=== PATIENT | female | born 1990 | race African-American/Black ===

== ENCOUNTER 2016-07-24 15:57 | Emergency (ER) | payer SELFPAY ==
[~2016-07-24] VITALS: Ht 157.5 cm; Wt 50.0 kg
[~2016-07-24 15:57] MED LIST: CIPR500T4 PO; MACR100C PO; PYRI200T4 PO
[2016-07-24 16:00] VITALS: BP 112/58; PULSE 72; RESP 18; TEMP 98; O2SAT 99
--- NOTE | 2016-07-24 16:26 | PD ---
HPI Chief Complaint: Skin Problem Time Seen by Provider: 16:22 Travel History International Travel<30 days: No Contact w/Intl Traveler<30days: No Traveled to known affect area: No History of Present Illness HPI Patient is a 25-year-old female presented to the emergency department for evaluation of a rash to her bilateral arms. Patient states it started 1 week ago, she states is itchy. She denies any fever, chills, wheezing, shortness of breath, history of anaphylactic reactions. She denies any history of eczema or asthma. Patient further denies any new soaps, lotions, detergents, foods. PFSH Past Medical History Medical History: Denies Significant Hx ?: Not Social History Alcohol Use: No Tobacco Use: No Substance Use: No Allergies-Medications (Allergen,Severity, Reaction): Coded Allergies: No Known Allergies (Verified , 07/24/16) Reported Meds & Prescriptions Reported Meds & Active Scripts Active Cipro (Ciprofloxacin HCl) 500 Mg Tab 500 Mg PO BID Macrobid (Nitrofurantoin Macrocrystals) 100 Mg Cap 100 Mg PO BID Pyridium (Phenazopyridine HCl) 200 Mg Tab 200 Mg PO Q8 PRN Review of Systems Except as stated in HPI: all other systems reviewed are Neg Skin: Positive Rash, Positive Itching Physical Exam Narrative GENERAL: Well-nourished, well-developed patient. SKIN: Focused skin assessment warm/dry. 0.5 cm (approximately) raised papular lesions to bilateral arms, scaling skin. No erythema, no induration, no fluctuance noted. HEAD: Normocephalic. EYES: No scleral icterus. No injection or drainage. NECK: Supple, trachea midline. No JVD or lymphadenopathy. CARDIOVASCULAR: Regular rate and rhythm without murmurs, gallops, or rubs. RESPIRATORY: Breath sounds equal bilaterally. No accessory muscle use. GASTROINTESTINAL: Abdomen soft, non-tender, nondistended. MUSCULOSKELETAL: No cyanosis, or edema. BACK: Nontender without obvious deformity. No CVA tenderness. Data Data Last Documented VS Vital Signs Date Time Temp Pulse Resp B/P Pulse Ox O2 Delivery O2 Flow Rate FiO2 07/24/16 16:00 98.0 72 18 112/58 99 Orders Methylprednisolone So Succ Inj (Solumedr (07/24/16 16:30) Diphenhydramine Inj (Benadryl Inj) (07/24/16 16:30) MDM Medical Decision Making Medical Screen Exam Complete: Yes Emergency Medical Condition: Yes Interpretation(s) Vital Signs Date Time Temp Pulse Resp B/P Pulse Ox O2 Delivery O2 Flow Rate FiO2 07/24/16 16:00 98.0 72 18 112/58 99 Differential Diagnosis Eczema versus contact dermatitis versus folliculitis versus impetigo versus other Narrative Course Patient's 25-year-old female presenting to emergency department evaluation rest to her bilateral arms. Rash is scaling and raised, circular. Appears to look like eczema however patient has no history of the same. Patient will be given Solu-Medrol and Benadryl in the emergency department, will reassess for response. Patient reports that the itching has improved, rash appears improved as well. Patient will be given prescription for triamcinolone cream, oral steroids, hydroxyzine. She is encouraged to follow-up with a primary doctor or the supervisor ore dressing. Patient verbalized understanding of these instructions. She was also encouraged to return to emergency department for any new or worsening symptoms. Patient is stable for discharge. Diagnosis Primary Impression: Rash and nonspecific skin eruption Additional Impression: Urticaria Referrals: Manager Payment Patient Instructions: Acute Rash (ED), Eczema (ED), General Instructions Additional Instructions: Follow-up with a supervisor ore dressing or your primary doctor Return to emergency department for any new or worsening symptoms Take medications as directed Med/Other Pt SpecificInfo: Prescription(s) given Scripts Methylprednisolone Dosepak (Medrol Dosepak)4 Mg Dspk4 Mg PO DIRECTED #1 DSPK Ref 0 Per Pharmacist direction Prov:Kelin Drew 07/24/16 Hydroxyzine HCl 50 Mg Tab50 Mg PO TID PRN (ITCHING) 7 Days Ref 0 Prov:Kelin Drew 07/24/16 Triamcinolone Topical 0.1% Cream1 Applic TOPICAL BID #60 GM Ref 0 Prov:Kelin Drew 07/24/16 Disposition: 01 DISCHARGE HOME Condition: Stable Kelin Drew Jul 24, 2016 16:26
[2016-07-24] MEDS ORDERED: methylPREDNISolone SOD SUCC 125 MG/2 ML VIAL IM ONE (16:30)
[2016-07-24] MEDS ORDERED: diphenhydrAMINE HCL 50 MG/ML VIAL IM ONE (16:30)
[2016-07-24] MEDS ORDERED: MEDR4PAK PO (17:04)
[2016-07-24] MEDS ORDERED: HYDR50TA94 PO (17:04)
[2016-07-24] MEDS ORDERED: TRIA.1%T TOPICAL (17:04)
== END 2016-07-24 17:11 | disposition home or self-care (01) ==
LOC: NETRI 15:57
DX: R21 Rash and other nonspecific skin eruption (principal); L50.9 Urticaria, unspecified
CPT/HCPCS: 96372; 99282; J1200; J2930

== ENCOUNTER 2017-09-01 00:34 | Emergency (ER) | payer SELFPAY ==
[~2017-09-01] VITALS: Ht 157.5 cm; Wt 48.0 kg
[~2017-09-01 00:34] MED LIST changes: +HYDR50TA94 PO; +MEDR4PAK PO; +TRIA.1%T TOPICAL
[2017-09-01 00:58] VITALS: BP 136/59; PULSE 79; RESP 16; TEMP 97.7; O2SAT 98
--- NOTE | 2017-09-01 03:45 | PD ---
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 No fever no chills no nausea no vomiting no abdominal pain no flank pain no dysuria no frequency no urgency. Patient denies as she just finished her normal period yesterday. Patient states she is wearing a sanitary pad and has had to change it twice today but not because she bleeding but because she wants to make sure it stays clean. Patient has other concerns or complaints. Pain is 0/10 intensity. PFSH Past Medical History Narrative Medical Negative past medical history negative surgical history no tobacco use alcohol use and substance use; nursing notes reviewed Medical History: Denies Significant Hx ?: Not LMP: 08/22/17 Past Surgical History Surgical History: No Previous Surgery Social History Alcohol Use: No Tobacco Use: No Substance Use: No Allergies-Medications (Allergen,Severity, Reaction): Coded Allergies: No Known Allergies (Verified , 07/24/16) Reported Meds & Prescriptions Reported Meds & Active Scripts Active Medrol Dosepak (Methylprednisolone) 4 Mg Dspk 4 Mg PO DIRECTED Per Pharmacist direction Hydroxyzine HCl 50 Mg Tab 50 Mg PO TID PRN 7 Days Triamcinolone Topical (Triamcinolone Acetonide) 0.1% Cream 1 Applic TOPICAL BID Cipro (Ciprofloxacin HCl) 500 Mg Tab 500 Mg PO BID Macrobid (Nitrofurantoin Macrocrystals) 100 Mg Cap 100 Mg PO BID Pyridium (Phenazopyridine HCl) 200 Mg Tab 200 Mg PO Q8 PRN Review of Systems Except as stated in HPI: all other systems reviewed are Neg Physical Exam Narrative GENERAL: Well-developed well-nourished female no acute distress no respiratory distress; triage vital signs grossly within normal range SKIN: Warm and dry. HEAD: Normocephalic. EYES: No scleral icterus. No injection or drainage. NECK: Supple, trachea midline. No JVD or lymphadenopathy. CARDIOVASCULAR: Regular rate and rhythm without murmurs, gallops, or rubs. RESPIRATORY: Breath sounds equal bilaterally. No accessory muscle use. GASTROINTESTINAL: Abdomen soft, non-tender, nondistended. MUSCULOSKELETAL: No cyanosis, or edema. BACK: Nontender without obvious deformity. No CVA tenderness. Data Data Last Documented VS Vital Signs Date Time Temp Pulse Resp B/P (MAP) Pulse Ox O2 Delivery O2 Flow Rate FiO2 09/01/17 00:58 97.7 79 16 136/59 (84) 98 Orders Orders Urinalysis - C+S If Indicated (09/01/17 03:42) Ed Urine Pregnancytest Poc (09/01/17 03:42) Urine Culture (09/01/17 03:47) Labs Laboratory Tests Test 09/01/17 03:47 Urine Color YELLOW Urine Turbidity HAZY Urine pH 6.0 Urine Specific Black 1.016 Urine Protein TRACE mg/dL Urine Glucose (UA) NEG mg/dL Urine Ketones NEG mg/dL Urine Occult Blood MOD Urine Nitrite NEG Urine Bilirubin NEG Urine Urobilinogen LESS THAN 2.0 MG/DL Urine Leukocyte Esterase MOD Urine RBC 3 /hpf Urine WBC 20 /hpf Urine Squamous Epithelial Cells 5 /hpf Urine Bacteria OCC /hpf Urine Mucus MOD /lpf Microscopic Urinalysis Comment CULTURE INDICATED MDM Medical Decision Making Medical Screen Exam Complete: Yes Emergency Medical Condition: Yes Medical Record Reviewed: Yes Interpretation(s) [id number] hCG: Negative Urinalysis positive leukocyte esterase white blood cells bacteria culture indicated and positive for blood Differential Diagnosis Hematuria, vaginal bleeding, Narrative Course Specimens collected and sent for resulting including [id number] Patient informed of urinalysis results given first dose of oral antibiotic and is stable for outpatient management Diagnosis Primary Impression: UTI (urinary tract infection) Referrals: Primary Care Physician call for appointment Patient Instructions: General Instructions Additional Instructions: Complete course of antibiotic as prescribed Take Pyridium as needed for discomfort Monitor temperature every 4 hours with thermometer and take as needed acetaminophen every 4 hours for fever 100.4F or greater or ibuprofen every 6-8 hours as needed for fever 100.4F or greater Return to the emergency department for any concerns or change in condition Follow-up with your primary care provider Med/Other Pt SpecificInfo: Prescription(s) given Scripts Phenazopyridine (Pyridium) 100 Mg Tab 100 MG PO Q8H Y for DYSURIA, #6 TAB 0 Refills Prov: Aneta Pena MD 09/01/17 Nitrofurantoin Monohydrate Macrocrystals (Macrobid) 100 Mg Cap 100 MG PO BID for Infection for 7 Days, #14 CAP 0 Refills Prov: Aneta Pena MD 09/01/17 Disposition: 01 DISCHARGE HOME Condition: Stable Aneta Pena MD September 01, 2017 03:45
[2017-09-01 04:02] LABS: BACTERIA, URINE OCC /hpf; BILIRUBIN, URINE NEG (NEG); BLOOD, URINE MOD (NEG); GLUCOSE,URINE NEG (NEG); KETONE, URINE NEG (NEG); MUCUS URINE MOD /lpf (OCC); NITRITE,URINE NEG (NEG); SQUAMOUS EPITHELIAL CELL URINE 5 /hpf (0-5); URINE COLOR YELLOW (YELLW/STRAW); URINE LEUKOCYTE ESTERASE MOD (NEG)
[2017-09-01] MEDS ORDERED: PHEN0.4T PO (04:19)
[2017-09-01] MEDS ORDERED: MACR100C2 PO (04:19)
[2017-09-01] MEDS ORDERED: NITROFURANTOIN MONOHYD MACROCR 100 MG CAP PO ONE (04:30)
== END 2017-09-01 04:29 | disposition home or self-care (01) ==
LOC: NEPC 00:34
DX: N39.0 Urinary tract infection, site not specified (principal)
CPT/HCPCS: 81001; 84703; 87086; 99283